=== PATIENT | male | born 1940 | race Caucasian/White ===

== ENCOUNTER 2023-04-28 09:54 | Inpatient (IN) | payer MEDICARE ==
[2023-04-28] MEDS ORDERED: Ondansetron PF 4 MG/2 ML Vial ONE (10:05)
[2023-04-28 10:11] LABS: #Basophils 0.1 thou/uL (0.0-0.2); #Eosinphils 0.1 thou/uL (0.0-0.7); #Monocytes 0.9 thou/uL (0.11-0.59); #Neutrophils 11.9 thou/uL (1.40-6.50); %Basophils 0.4 % (0.0-1.0); %Eosinophils 0.8 % (0.0-10.0); %Lymphocytes 6.8 % (21.0-51.0); %Monocytes 6.6 % (0.0-10.0); %Neutrophils 84.1 % (42.0-75.0); Hemoglobin 11.2 g/dL (14.0-18.0); Mean Corpuscular Hemoglobin 26.9 pg (27.0-31.0); Mean Corpuscular Volume 84.1 fl (78.0-98.0); Mean Platelet Volume 10.5 fL (7.4-10.4); Platelet Count 259 10x3/uL (130-400); RBC Distribution Width 14.5 % (11.5-14.5); Red Blood Cell (RBC) Count 4.16 mill/uL (4.70-6.10); White Blood Cell (WBC) Count 14.1 10x3/uL (4.8-10.8)
[2023-04-28] MEDS ORDERED: Morphine 4 MG/ML VIAL ONE (10:17)
[2023-04-28 10:37] LABS: ALT (SGPT) 34 U/L (8-55); AST (SGOT) 42 U/L (5-34); Albumin 4.3 g/dL (3.4-4.8); Alkaline Phosphatase 80 U/L (40-110); Anion Gap 18 mmol/L (10-20); BUN (Urea Nitrogen) 16 mg/dL (8.4-25.7); Bilirubin, Total 0.7 mg/dL (0.2-1.2); Calc. Creatinine Clearance 0 mL/min (70-130); Calcium 8.8 mg/dL (7.8-10.44); Carbon Dioxide 18 mmol/L (23-31); Chloride 100 mmol/L (98-107); Estimated GFR 63; Globulin 3.1 g/dL (2.4-3.5); Glucose 120 mg/dL (83-110); Potassium 3.6 mmol/L (3.5-5.1); Protein, Total 7.4 g/dL (5.8-8.1); Sodium 132 mmol/L (136-145)
[2023-04-28 12:06] LABS: PTT 28.5 sec (22.9-36.1); Prothrombin Time 13.9 sec (12.0-14.7)
[2023-04-28] MEDS ORDERED: Ketorolac Tromethamine 30 MG/ML VIAL ONE (12:31)
[2023-04-28] MEDS ORDERED: LORazepam 2 MG/ML SYR.(CARPUJECT) ONE (12:32)
[2023-04-28] MEDS ORDERED: Ondansetron PF 4 MG/2 ML Vial IVP PRN (14:24)
[2023-04-28] MEDS ORDERED: Dextrose 5% in Water 1,000 ML IV PRN (14:24)
[2023-04-28] MEDS ORDERED: Glucagon 1 MG/ML KIT IM PRN (14:24)
[2023-04-28] MEDS ORDERED: TETANUS, DIPHTHERIA TOX,ADULT (TDVAX) 0.5 ML VIAL IM ONE (14:24)
[2023-04-28] MEDS ORDERED: Dextrose 50% Abboject 50 ML SYRINGE SLOW IVP PRN (14:24)
[2023-04-28 14:25] LABS: Lactic Acid 2.3 mmol/L (0.5-2.2)
[2023-04-28] MEDS ORDERED: Haloperidol Lactate 5 MG/ML VIAL ONE (14:25)
[2023-04-28] MEDS ORDERED: diphenhydrAMINE 50 MG/ML VIAL ONE (14:25)
[2023-04-28 15:28] LABS: Bacteria/HPF None Seen HPF (None Seen); Bilirubin Negative (Negative); Blood, Urine 1+ (Negative); CAUTI Indications for Culture Alt mental st,lethar; Clarity Clear (Clear); Glucose, Urine (Dipstick) Normal (Negative); Ketone, Urine Trace mg/dL (Negative); Leukocyte Negative Leu/uL (Negative); Nitrite Negative (Negative); Protein, Urine (Dipstick) 30 mg/dL (Neg-Trace); RBC/HPF 0-3 HPF (0-3); Specific Gravity, Urine 1.011 (1.002-1.036); Squamous Epithelial None Seen HPF (0-3); Urobilinogen Normal mg/dL (Less than 2); WBC/HPF 0-3 HPF (0-3); pH, Urine 7.5 (5.0-9.0)
[2023-04-28 15:34] LABS: Urine Culture Reflex No No
[2023-04-28 16:01] LABS: SARS-CoV-2 NAA Rapid Test Not Detected (NotDetected)
[2023-04-28 16:57] VITALS: BMI 23.9
[2023-04-28] MEDS ORDERED: Sodium Chloride 0.9% 1,000 ML IV SCH (17:00)
[2023-04-28] MEDS: Acetaminophen 325 MG TAB PO SCH (17:27)
[2023-04-28] MEDS: Ipratropium/Albuterol 3 ML NEB NEB SCH ×2 (18:18→23:40)
[2023-04-28] MEDS ORDERED: Labetalol HCl 100 MG/20 ML VIAL SLOW IVP PRN (19:31)
[2023-04-28] MEDS ORDERED: hydrALAZINE 20 MG/ML VIAL SLOW IVP PRN (19:31)
[2023-04-28] MEDS ORDERED: niCARdipine 25 MG in Sodium Chloride 0.9% 250 ML 250 ML IVPB SCH ×2 (19:45→20:00)
[2023-04-28] MEDS: Lisinopril 10 MG TAB PO SCH (21:04)
[2023-04-28] MEDS: QUEtiapine 25 MG TAB PO SCH (22:38)
[2023-04-29] MEDS: Acetaminophen 325 MG TAB PO SCH ×5 (00:20→23:56)
[2023-04-29] MEDS: Ketorolac Tromethamine 30 MG/ML VIAL IVP PRN ×3 (00:50→17:36)
[2023-04-29 03:32] LABS: #Basophils 0.1 thou/uL (0.0-0.2); #Eosinphils 0.1 thou/uL (0.0-0.7); #Monocytes 0.6 thou/uL (0.11-0.59); #Neutrophils 7.1 thou/uL (1.40-6.50); %Basophils 0.6 % (0.0-1.0); %Eosinophils 0.6 % (0.0-10.0); %Lymphocytes 10.4 % (21.0-51.0); %Neutrophils 80.9 % (42.0-75.0); Hematocrit 27.8 % (42.0-52.0); Hemoglobin 9.1 g/dL (14.0-18.0); Mean Corpuscular HGB CONC 32.7 g/dL (32.0-36.0); Mean Corpuscular Hemoglobin 27.1 pg (27.0-31.0); Mean Corpuscular Volume 82.7 fl (78.0-98.0); Mean Platelet Volume 10.7 fL (7.4-10.4); RBC Distribution Width 14.7 % (11.5-14.5); Red Blood Cell (RBC) Count 3.36 mill/uL (4.70-6.10); White Blood Cell (WBC) Count 8.7 10x3/uL (4.8-10.8)
[2023-04-29 03:53] LABS: Phosphorus 3.3 mg/dL (2.3-4.7); Platelet Count 154 10x3/uL (130-400)
[2023-04-29 04:06] LABS: Anion Gap 13 mmol/L (10-20); BUN (Urea Nitrogen) 20 mg/dL (8.4-25.7); Calc. Creatinine Clearance 52 mL/min (70-130); Calcium 7.8 mg/dL (7.8-10.44); Carbon Dioxide 20 mmol/L (23-31); Chloride 105 mmol/L (98-107); Estimated GFR 59; Glucose 103 mg/dL (83-110); Magnesium 2.1 mg/dL (1.6-2.6); Sodium 134 mmol/L (136-145)
[2023-04-29] MEDS ORDERED: Polyethylene Glycol 3350 17 GM Packet PO PRN (06:06)
[2023-04-29] MEDS ORDERED: Senokot 8.6 MG TAB PO PRN (06:06)
[2023-04-29] MEDS: Ipratropium/Albuterol 3 ML NEB NEB SCH ×4 (07:28→23:43)
[2023-04-29] MEDS ORDERED: Lisinopril 20 MG TAB PO SCH (09:00)
[2023-04-29] MEDS: QUEtiapine 25 MG TAB PO SCH ×2 (09:04→20:06)
[2023-04-29] MEDS: Tamsulosin HCl 0.4 MG CAP PO SCH (09:04)
[2023-04-29] MEDS: Lisinopril 10 MG TAB PO SCH ×2 (09:06→20:06)
[2023-04-30] MEDS: Acetaminophen 325 MG TAB PO SCH ×3 (05:36→23:50)
[2023-04-30] MEDS: Ipratropium/Albuterol 3 ML NEB NEB SCH ×3 (06:38→19:01)
[2023-04-30] MEDS: QUEtiapine 25 MG TAB PO SCH ×2 (09:18→20:36)
[2023-04-30] MEDS: Lisinopril 10 MG TAB PO SCH ×2 (09:18→20:36)
[2023-04-30] MEDS: Ketorolac Tromethamine 30 MG/ML VIAL IVP PRN (09:18)
[2023-04-30] MEDS: Tamsulosin HCl 0.4 MG CAP PO SCH (09:21)
[2023-05-01] MEDS: Ipratropium/Albuterol 3 ML NEB NEB SCH ×4 (02:52→19:02)
[2023-05-01 05:20] LABS: Hematocrit 29.5 % (42.0-52.0); Hemoglobin 9.5 g/dL (14.0-18.0); Mean Corpuscular HGB CONC 32.2 g/dL (32.0-36.0); Mean Corpuscular Hemoglobin 26.5 pg (27.0-31.0); Mean Corpuscular Volume 82.4 fl (78.0-98.0); Platelet Count 172 10x3/uL (130-400); Red Blood Cell (RBC) Count 3.58 mill/uL (4.70-6.10); White Blood Cell (WBC) Count 6.6 10x3/uL (4.8-10.8)
[2023-05-01 06:09] LABS: Delete Auto Diff?? YES; Manual Diff?? YES
[2023-05-01] MEDS: Acetaminophen 325 MG TAB PO SCH ×4 (06:55→18:51)
[2023-05-01 06:59] LABS: Anisocytosis SLIGHT = 6-15 cells HPF (0-5); Band 29 % (5-11); Burr Cells SLIGHT = 2-5 cells HPF (0-1); CellaVision Operator ID LAB.JMM; Elliptocytes SLIGHT = 2-5 cells HPF (0-1); Eosinophils 2 % (0-10); Large Platelets 3.9 % (0-5); Lymphocytes 6 % (21-51); Macrocytosis SLIGHT = 6-15 cells HPF (0-5); Monocytes 11 % (0-10); Neutrophil 52 % (42-75); Platelet Adequacy Comment Platelets Normal; Smudge Cells 8.8 %; Total Cell Count 102
[2023-05-01] MEDS: QUEtiapine 25 MG TAB PO SCH ×2 (09:16→20:15)
[2023-05-01] MEDS: Lisinopril 10 MG TAB PO SCH ×2 (09:16→20:15)
[2023-05-01] MEDS: Tamsulosin HCl 0.4 MG CAP PO SCH (09:17)
[2023-05-01] MEDS: Ketorolac Tromethamine 30 MG/ML VIAL IVP PRN (09:23)
[2023-05-01] MEDS ORDERED: Melatonin 3 MG TAB PO PRN (10:03)
[2023-05-01] MEDS ORDERED: FLU VACC QS2023-24(6MOS UP)/PF 60 MCG/0.5 ML SYRINGE IM ONE (17:45)
[2023-05-02] MEDS: Ipratropium/Albuterol 3 ML NEB NEB SCH ×3 (00:35→14:12)
[2023-05-02] MEDS: Acetaminophen 325 MG TAB PO SCH ×5 (02:19→23:59)
[2023-05-02] MEDS: Tamsulosin HCl 0.4 MG CAP PO SCH (10:04)
[2023-05-02] MEDS: Lisinopril 10 MG TAB PO SCH ×2 (10:04→20:24)
[2023-05-02] MEDS: QUEtiapine 25 MG TAB PO SCH ×2 (10:05→20:24)
[2023-05-02] MEDS ORDERED: Ipratropium/Albuterol 3 ML NEB NEB PRN (14:26)
[2023-05-03 05:04] LABS: Anion Gap 12 mmol/L (10-20); BUN (Urea Nitrogen) 44 mg/dL (8.4-25.7); Calc. Creatinine Clearance 48 mL/min (70-130); Carbon Dioxide 19 mmol/L (23-31); Chloride 105 mmol/L (98-107); Estimated GFR 63; Glucose 110 mg/dL (83-110); Magnesium 2.5 mg/dL (1.6-2.6); Phosphorus 4.1 mg/dL (2.3-4.7); Potassium 4.3 mmol/L (3.5-5.1); Sodium 132 mmol/L (136-145)
[2023-05-03] MEDS: Acetaminophen 325 MG TAB PO SCH ×4 (05:55→23:07)
[2023-05-03] MEDS: QUEtiapine 25 MG TAB PO SCH ×2 (08:57→20:19)
[2023-05-03] MEDS: Tamsulosin HCl 0.4 MG CAP PO SCH (08:58)
[2023-05-03] MEDS: Lisinopril 10 MG TAB PO SCH ×2 (08:58→20:19)
[2023-05-03] MEDS: Ipratropium/Albuterol 3 ML NEB NEB SCH ×2 (13:40→19:44)
[2023-05-04] MEDS: Ipratropium/Albuterol 3 ML NEB NEB SCH ×3 (01:05→12:51)
[2023-05-04] MEDS: Acetaminophen 325 MG TAB PO SCH ×2 (05:32→11:46)
[2023-05-04] MEDS: Tamsulosin HCl 0.4 MG CAP PO SCH (08:31)
[2023-05-04] MEDS: Lisinopril 10 MG TAB PO SCH (08:31)
[2023-05-04] MEDS: QUEtiapine 25 MG TAB PO SCH (08:31)
[2023-05-04 11:41] VITALS: BP 136/76; TEMP 98.3
== END 2023-05-04 14:30 | DRG 964 ==
LOC: ERS 09:54 → ERHOLD 13:09 → CCU 16:53 → SURG B 04-30 09:29 → SURG A 05-01 12:46
PROVIDERS: ADMIT Surgery; ATTEND Surgery
PROC: 0T9B70Z Drainage of Bladder with Drainage Device, Via Natural or Artificial Opening (ICD-10-PCS; principal; 2023-04-28)
DX: S06.2X0A Diffuse traumatic brain injury without loss of consciousness, initial encounter (principal); S32.432A Displaced fracture of anterior column [iliopubic] of left acetabulum, initial encounter for closed fracture; M48.54XA Collapsed vertebra, not elsewhere classified, thoracic region, initial encounter for fracture; S32.591A Other specified fracture of right pubis, initial encounter for closed fracture; M48.56XA Collapsed vertebra, not elsewhere classified, lumbar region, initial encounter for fracture; S32.592A Other specified fracture of left pubis, initial encounter for closed fracture; Z79.899 Other long term (current) drug therapy; I10 Essential (primary) hypertension; K21.9 Gastro-esophageal reflux disease without esophagitis; Z90.49 Acquired absence of other specified parts of digestive tract; R33.9 Retention of urine, unspecified; W11.XXXA Fall on and from ladder, initial encounter; F03.90 Unspecified dementia, unspecified severity, without behavioral disturbance, psychotic disturbance, mood disturbance, and anxiety
CPT/HCPCS: 36415; 51701; 70450; 71045; 71260; 72125; 72170; 74177; 80048; 80053; 81001; 83605; 83735; 83880; 84100; 85025; 85610; 85730; 87040; 94640; 96361; 96372; 96374; 96375; J0360; J1200; J1630; J1650; J1885; J2060; J2270; J2405; J7050; J7620

== ENCOUNTER 2023-05-28 11:39 | Outpatient (CLI) | payer MEDICARE | END 2023-05-28 11:40 | disposition home or self-care (01) | LOC: BICRAD 11:39 | PROVIDERS: ATTEND Neurological Surgery | DX: M48.54XA Collapsed vertebra, not elsewhere classified, thoracic region, initial encounter for fracture (principal); M48.56XA Collapsed vertebra, not elsewhere classified, lumbar region, initial encounter for fracture; M47.816 Spondylosis without myelopathy or radiculopathy, lumbar region | CPT/HCPCS: 72072; 72100 ==